=== PATIENT | male | born 1970 | race Caucasian/White ===

== ENCOUNTER 2017-01-11 10:44 | Emergency (ER) | payer OTHER ==
[2015-02-06 12:55] VITALS: BMI 17.5
[~2017-01-11 10:44] MED LIST: HYDROCODONE-APA1 TAB PO; IBUPROFEN800 MG; KLONOPIN1 MG PO; MUCINEX DM ER1 EAC1 PO; NAFCILLIN 2 GM/N2 G1 IV; PROTONIX40 MG PO; TESSALON PERLE100 MG PO
== END 2017-01-11 12:40 | disposition home or self-care (01) ==
LOC: D.ER 10:44
DX: S29.012A Strain of muscle and tendon of back wall of thorax, initial encounter (principal); X58.XXXA Exposure to other specified factors, initial encounter; Y93.89 Activity, other specified; Y92.89 Other specified places as the place of occurrence of the external cause; M62.830 Muscle spasm of back

== ENCOUNTER 2019-11-03 15:21 | Emergency (ER) | payer SELFPAY ==
[~2019-11-03] VITALS: Ht 182.9 cm; Wt 0.0 kg
[2019-11-03 15:31] VITALS: Ht 182.9 cm; Wt 0.0 kg
[2019-11-03 17:20] VITALS: BP 140/82
== END 2019-11-03 17:20 | disposition home or self-care (01) ==
LOC: D.ER 15:21
DX: L03.116 Cellulitis of left lower limb (principal); J44.9 Chronic obstructive pulmonary disease, unspecified; G62.9 Polyneuropathy, unspecified